=== PATIENT | female | born 1965 | race African-American/Black ===

== ENCOUNTER 2017-01-02 08:22 | Emergency (ER) | payer OTHER, MEDICAID ==
[~2017-01-02] VITALS: Ht 160 cm; Wt 100.0 kg
[~2017-01-02 08:22] MED LIST: AMLODIPINE; BENAZEPRIL; METFORMIN
[2017-01-02 09:00] VITALS: BP 149/104
[2017-01-02] MEDS ORDERED: KETOROLAC 30MG/ML VIAL IV ONE (09:30)
== END 2017-01-02 11:57 | disposition home or self-care (01) ==
LOC: ER 08:23
DX: S63.601A Unspecified sprain of right thumb, initial encounter (principal); Z79.899 Other long term (current) drug therapy; I10 Essential (primary) hypertension; F17.200 Nicotine dependence, unspecified, uncomplicated; W50.4XXA Accidental scratch by another person, initial encounter; Y93.89 Activity, other specified; Y99.9 Unspecified external cause status; Y92.89 Other specified places as the place of occurrence of the external cause
CPT/HCPCS: 73110; 73130; 96374; 99284; J1885

== ENCOUNTER 2017-02-02 13:17 | Emergency (ER) | payer OTHER, MEDICARE ==
[~2017-02-02] VITALS: Ht 160 cm; Wt 108.0 kg
[2017-02-02] MEDS ORDERED: KETOROLAC 30MG/ML VIAL IM ONE (15:00)
[2017-02-02 15:22] VITALS: BP 141/83
== END 2017-02-02 16:06 | disposition home or self-care (01) ==
LOC: ER 15:50
DX: M54.5 Low back pain (principal); M51.36 Other intervertebral disc degeneration, lumbar region; Z79.899 Other long term (current) drug therapy; I10 Essential (primary) hypertension
CPT/HCPCS: 96372; 99283; J1885

== ENCOUNTER 2017-12-25 08:57 | Emergency (ER) | payer OTHER, MEDICARE ==
[~2017-12-25] VITALS: Ht 165.1 cm; Wt 91.0 kg
[2017-12-25] MEDS ORDERED: SODIUM CHLORIDE 0.9% 1,000 ML IV ONE (09:44)
[2017-12-25] MEDS ORDERED: FAMOTIDINE 20MG/2ML VIAL IV STA (09:44)
[2017-12-25] MEDS ORDERED: ONDANSETRON HCL 4MG/2ML VIAL IV STA (09:44)
[2017-12-25 10:05] LABS: EOSINOPHILS % 0.4 % (0.0-5.0); HEMATOCRIT. 36.6 % (36.0-48.0); HEMOGLOBIN. 11.4 g/dL (12.0-16.0); LYMPHOCYTES % 27.3 % (20.0-50.0); MEAN CORPUSCULAR HEMOGLOBIN 23.3 pg (28.0-32.0); MEAN CORPUSCULAR VOLUME 75.1 fL (81.0-99.0); MEAN PLATELET VOLUME 7.8 fl (7.4-10.4); NEUTROPHILS % 64.3 % (40.0-76.0); PLATELET 287 x1000/uL (130-400); RED BLOOD CELL COUNT 4.88 mill/uL (4.2-5.4); RED CELL DISTRIBUTION WIDTH 22.7 % (11.6-14.6)
[2017-12-25 10:25] LABS: CHLORIDE 108 mEq/L (98-107)
[2017-12-25 10:33] LABS: CLARITY URINE CLEAR (CLEAR); COLOR URINE YELLOW (YELLOW); KETONES URINE NEGATIVE (NEGATIVE); LEUKOCYTE ESTERASE URINE NEGATIVE (NEGATIVE); NITRITE URINE NEGATIVE (NEGATIVE); OCCULT BLOOD URINE NEGATIVE (NEGATIVE); PROTEIN URINE NEGATIVE (NEGATIVE); SPECIFIC GRAVITY URINE 1.016 (1.005-1.030); UROBILINOGEN URINE 0.2 E.U./dL (0.2-1.0)
[2017-12-25 10:43] LABS: PLATELET ESTIMATE NORMAL
[2017-12-25 12:10] VITALS: BP 167/105
== END 2017-12-25 12:13 | disposition home or self-care (01) ==
LOC: ER 09:38
DX: R10.12 Left upper quadrant pain (principal); R11.2 Nausea with vomiting, unspecified; R19.7 Diarrhea, unspecified; I10 Essential (primary) hypertension; E11.9 Type 2 diabetes mellitus without complications; Z79.84 Long term (current) use of oral hypoglycemic drugs; Z98.51 Tubal ligation status; Z98.890 Other specified postprocedural states
CPT/HCPCS: 36415; 80053; 81003; 81025; 83690; 85025; 96361; 96374; 96375; 99285; J2405; J3490; J7030

== ENCOUNTER 2018-04-01 07:38 | Emergency (ER) | payer OTHER, MEDICARE ==
[~2018-04-01] VITALS: Ht 160 cm; Wt 100.0 kg
[2018-04-01] MEDS ORDERED: IBUPROFEN 800MG TABLET PO ONE (08:00)
[2018-04-01] MEDS ORDERED: PREDNISONE 20MG TABLET PO ONE (08:00)
[2018-04-01 08:35] VITALS: BP 140/101
== END 2018-04-01 09:22 | disposition home or self-care (01) ==
LOC: ER 07:38
DX: J02.9 Acute pharyngitis, unspecified (principal)
CPT/HCPCS: 81025; 87070; 87430; 99284; J7512; 99283

== ENCOUNTER 2018-12-03 13:05 | Emergency (ER) | payer MEDICARE ==
[~2018-12-03] VITALS: Ht 160 cm; Wt 100.0 kg
[2018-12-03 15:08] VITALS: BP 174/96
== END 2018-12-03 17:39 | disposition left against medical advice (07) ==
LOC: ER 13:05
DX: R10.9 Unspecified abdominal pain (principal); Z53.21 Procedure and treatment not carried out due to patient leaving prior to being seen by health care provider

== ENCOUNTER 2018-12-04 09:20 | Emergency (ER) | payer MEDICARE ==
[~2018-12-04] VITALS: Ht 160 cm; Wt 100.0 kg
[2018-12-04] MEDS ORDERED: ONDANSETRON HCL 4MG/2ML INJ IV STA (12:03)
[2018-12-04] MEDS ORDERED: SODIUM CHLORIDE 0.9% 1,000 ML IV ONE (12:03)
[2018-12-04] MEDS ORDERED: MORPHINE SULFATE 4 MG/ML CPJ (NOT FOR IM USE) IV STA (12:03)
[2018-12-04] MEDS ORDERED: FAMOTIDINE 20MG/2ML VIAL IV STA (12:03)
[2018-12-04 12:58] LABS: BASOPHILS % 1.1 % (0.0-2.0); EOSINOPHILS % 0.7 % (0.0-5.0); HEMATOCRIT. 35.6 % (36.0-48.0); HEMOGLOBIN. 11.2 g/dL (12.0-16.0); LYMPHOCYTES % 30.7 % (20.0-50.0); MEAN CORPUSCULAR HEMOGLOBIN 24.3 pg (28.0-32.0); MEAN CORPUSCULAR VOLUME 77.3 fL (81.0-99.0); MEAN PLATELET VOLUME 8.1 fl (7.4-10.4); MONOCYTES % 5.8 % (2.0-8.0); NEUTROPHILS % 61.7 % (40.0-76.0); PLATELET 279 x1000/uL (130-400); RED BLOOD CELL COUNT 4.61 mill/uL (4.2-5.4); RED CELL DISTRIBUTION WIDTH 19.6 % (11.6-14.6)
[2018-12-04 13:04] LABS: CHLORIDE 111 mEq/L (98-107)
[2018-12-04 13:06] LABS: PROTHROMBIN TIME 9.9 sec (9.1-11.1)
[2018-12-04 13:07] LABS: CLARITY URINE TURBID (CLEAR); COLOR URINE YELLOW (YELLOW); KETONES URINE NEGATIVE (NEGATIVE); LEUKOCYTE ESTERASE URINE NEGATIVE (NEGATIVE); NITRITE URINE NEGATIVE (NEGATIVE); OCCULT BLOOD URINE NEGATIVE (NEGATIVE); PROTEIN URINE NEGATIVE (NEGATIVE); SPECIFIC GRAVITY URINE 1.023 (1.005-1.030); UROBILINOGEN URINE 0.2 E.U./dL (0.2-1.0)
[2018-12-04 13:08] LABS: ETHANOL BLOOD < 10 mg/dL
[2018-12-04 13:39] LABS: *AMPHETAMINES SCREEN URINE NEGATIVE (NEGATIVE); *BARBITURATES SCREEN URINE NEGATIVE (NEGATIVE); CANNABINOID URINE SCREEN PRESUMTIVE POSITIVE (NEGATIVE); METHADONE URINE SCREEN NEGATIVE (NEGATIVE); OPIATES URINE SCREEN NEGATIVE (NEGATIVE); PHENCYCLIDINE URINE SCREEN NEGATIVE (NEGATIVE)
[2018-12-04 13:40] LABS: *BENZODIAZEPINES SCREEN URINE NEGATIVE (NEGATIVE); *COCAINE SCREEN URINE NEGATIVE (NEGATIVE)
[2018-12-04] MEDS ORDERED: METRONIDAZOLE 500MG TABLET PO ONE (14:45)
[2018-12-04] MEDS ORDERED: LEVOFLOXACIN 500MG TABLET PO ONE (14:45)
[2018-12-04 18:41] VITALS: BP 130/72
== END 2018-12-04 18:46 | disposition home or self-care (01) ==
LOC: ER 10:44
DX: A09 Infectious gastroenteritis and colitis, unspecified (principal); K51.90 Ulcerative colitis, unspecified, without complications; I10 Essential (primary) hypertension; E11.9 Type 2 diabetes mellitus without complications; F12.90 Cannabis use, unspecified, uncomplicated
CPT/HCPCS: 36415; 71045; 74176; 80053; 80305; 80320; 81003; 81025; 83690; 85025; 85610; 96374; 96375; 99284; J2270; J2405; J3490; J7030; G0480

== ENCOUNTER 2019-05-25 15:46 | Emergency (ER) | payer MEDICARE ==
[~2019-05-25] VITALS: Ht 160 cm; Wt 102.0 kg
[2019-05-25 16:23] VITALS: BP 171/116
== END 2019-05-25 18:35 | disposition home or self-care (01) ==
LOC: ER 15:46
DX: M62.838 Other muscle spasm (principal); I10 Essential (primary) hypertension; F12.10 Cannabis abuse, uncomplicated; Z79.84 Long term (current) use of oral hypoglycemic drugs; Z79.899 Other long term (current) drug therapy; Z98.890 Other specified postprocedural states; Z98.51 Tubal ligation status
CPT/HCPCS: 99283

== ENCOUNTER 2019-09-09 08:25 | Emergency (ER) | payer SELFPAY ==
[~2019-09-09] VITALS: Ht 160 cm; Wt 103.0 kg
[2019-09-09] MEDS: SODIUM CHLORIDE 0.9% 1,000 ML IV ONE (11:48)
[2019-09-09 12:08] LABS: BASOPHILS % 0.6 % (0.0-2.0); EOSINOPHILS % 0.3 % (0.0-5.0); HEMATOCRIT. 39.4 % (36.0-48.0); HEMOGLOBIN. 12.7 g/dL (12.0-16.0); LYMPHOCYTES % 28.5 % (20.0-50.0); MEAN CORPUSCULAR HEMOGLOBIN 26.1 pg (28.0-32.0); MEAN CORPUSCULAR VOLUME 80.7 fL (81.0-99.0); MEAN PLATELET VOLUME 8.5 fl (7.4-10.4); MONOCYTES % 5.9 % (2.0-8.0); NEUTROPHILS % 64.7 % (40.0-76.0); PLATELET 285 x1000/uL (130-400); RED BLOOD CELL COUNT 4.88 mill/uL (4.2-5.4); RED CELL DISTRIBUTION WIDTH 18.6 % (11.6-14.6)
[2019-09-09 12:13] LABS: CLARITY URINE CLOUDY (CLEAR); COLOR URINE YELLOW (YELLOW); KETONES URINE NEGATIVE (NEGATIVE); LEUKOCYTE ESTERASE URINE NEGATIVE (NEGATIVE); NITRITE URINE NEGATIVE (NEGATIVE); OCCULT BLOOD URINE NEGATIVE (NEGATIVE); PH URINE 6.5 (4.5-8.0); PROTEIN URINE NEGATIVE (NEGATIVE); UROBILINOGEN URINE 0.2 E.U./dL (0.2-1.0)
[2019-09-09] MEDS: DICYCLOMINE HCL 10MG CAPSULE PO ONE (12:43)
[2019-09-09 13:08] LABS: CHLORIDE 107 mEq/L (98-107)
[2019-09-09 14:30] VITALS: BP 133/79
== END 2019-09-09 14:33 | disposition home or self-care (01) ==
LOC: ER 08:25
DX: R10.84 Generalized abdominal pain (principal); F12.10 Cannabis abuse, uncomplicated; I10 Essential (primary) hypertension; Z98.890 Other specified postprocedural states; Z98.51 Tubal ligation status
CPT/HCPCS: 36415; 80053; 81003; 83690; 85025; 85610; 99283; J7030

== ENCOUNTER 2020-06-19 10:34 | Emergency (ER) | payer OTHER, MEDICAID ==
[~2020-06-19] VITALS: Ht 160 cm; Wt 104.0 kg
[2020-06-19 10:45] VITALS: BP 162/99
[2020-06-19] MEDS ORDERED: KETOROLAC 30MG/ML VIAL IM ONE (11:30)
[2020-06-19] MEDS ORDERED: METHOCARBAMOL 500MG TABLET PO ONE (11:30)
== END 2020-06-19 13:04 | disposition home or self-care (01) ==
LOC: ER 10:34
DX: M54.2 Cervicalgia (principal); M54.5 Low back pain; I10 Essential (primary) hypertension; Z98.51 Tubal ligation status; Z98.890 Other specified postprocedural states
CPT/HCPCS: 96372; 99283; J1885